=== PATIENT | male | born 1980 | race African-American/Black ===

== ENCOUNTER 2017-09-21 18:26 | Emergency (ER) | payer MEDICAID ==
[~2017-09-21] VITALS: Ht 175.3 cm; Wt 80.0 kg
[2017-09-21] MEDS ORDERED: IBUPROFEN 400MG TABLET PO ONE (19:15)
[2017-09-21] MEDS ORDERED: ACETAMINOPHEN 325MG TABLET PO ONE (20:00)
[2017-09-21 20:13] VITALS: BP 170/100
== END 2017-09-21 20:20 | disposition home or self-care (01) ==
LOC: ER 18:35
DX: R07.9 Chest pain, unspecified (principal); G89.29 Other chronic pain; M25.571 Pain in right ankle and joints of right foot; I10 Essential (primary) hypertension; Z88.6 Allergy status to analgesic agent
CPT/HCPCS: 73630; 99284

== ENCOUNTER 2024-09-21 17:34 | Emergency (ER) | payer SELFPAY ==
[~2024-09-21] VITALS: Ht 180.3 cm; Wt 75.0 kg
[2024-09-21 17:35] VITALS: BP 191/122; PULSE 94; RESP 18; TEMP 36.8; O2SAT 98
== END 2024-09-21 18:08 | disposition left against medical advice (07) ==
LOC: ER 17:34
DX: F10.129 Alcohol abuse with intoxication, unspecified (principal); Z53.21 Procedure and treatment not carried out due to patient leaving prior to being seen by health care provider; Y90.9 Presence of alcohol in blood, level not specified

== ENCOUNTER 2024-10-07 08:58 | Emergency (ER) | payer OTHER ==
[~2024-10-07] VITALS: Ht 182.9 cm; Wt 72.0 kg
[2024-10-07 09:06] VITALS: O2SAT 96
[2024-10-07] MEDS ORDERED: KEPP500 MT (09:55)
[2024-10-07] MEDS ORDERED: LEVETIRACETAM 500MG TABLET PO NR (10:30)
[2024-10-07] MEDS: LEVETIRACETAM 500MG TABLET PO NR (10:34)
[2024-10-07] MEDS: LEVETIRACETAM 500MG/5ML CUP PO ONE (10:34)
[2024-10-07 10:40] VITALS: BP 167/111; PULSE 105; RESP 16; TEMP 36.7; O2SAT 96
== END 2024-10-07 10:40 ==
LOC: ER 08:59
DX: R56.9 Unspecified convulsions (principal); I10 Essential (primary) hypertension; Z88.6 Allergy status to analgesic agent
CPT/HCPCS: 99283